=== PATIENT | male | born 1950 | race Caucasian/White ===

== ENCOUNTER 2016-06-24 21:46 | Emergency (ER) | payer OTHER ==
[2016-06-24] MEDS ORDERED: NS 1,000 ML IV ONE (22:05)
[2016-06-24] MEDS ORDERED: ONDANSETRON 4 MG/2 ML VIAL IVP ONE (22:08)
[2016-06-24 22:15] VITALS: O2SAT 93
[2016-06-24 22:17] LABS: % IMMATURE GRANULYOCYTES 0.3 % (0.0-1.1); ABSOLUTE IMMATURE GRANULOCYTES 0.02 10^3/uL (0.00-0.10); ADD DIFF? NO; ADD MORPH? NO; ADD SCAN? NO; ATYPICAL LYMPHOCYTE FLAG 0 (0-99); FRAGMENT RBC FLAG 0 (0-99); HEMATOCRIT 44.9 % (40.0-51.0); HEMOGLOBIN 16.4 g/dL (13.7-17.5); LEFT SHIFT FLG 0 (0-99); LIPEMIA HEMOLYSIS FLAG 90 (0-99); MEAN CELL HEMOGLOBIN 32.2 pg (27.9-34.1); MEAN CELL HEMOGLOBIN CONCENTR. 36.5 g/dL (32.4-36.7); PLATELET CLUMPS FLAG 10 (0-99); PLATELET COUNT 211 10^3/uL (150-400); RED CELL DISTRIBUTION WIDTH 11.9 % (11.5-15.2)
[2016-06-24 22:30] LABS: ALANINE AMINOTRANSFERASE 27 IU/L (21-72); ALBUMIN 4.3 g/dL (3.5-5.0); ALKALINE PHOSPHATASE 82 IU/L (38-126); ANION GAP 14 mEq/L (8-16); ASPARTATE AMINOTRANSFERASE 24 IU/L (17-59); BILIRUBIN,TOTAL 0.6 mg/dL (0.1-1.4); BILIRUBIN-CONJUGATED 0.1 mg/dL (0.0-0.5); BILIRUBIN-UNCONJUGATED 0.5 mg/dL (0.0-1.1); CALCIUM 9.9 mg/dL (8.5-10.4); CARBON DIOXIDE 26 mEq/l (22-31); CHLORIDE 100 mEq/L (97-110); GLOMERULAR FILTRATION RATE > 60; GLUCOSE 101 mg/dL (70-100); POTASSIUM 3.6 mEq/L (3.5-5.2); SODIUM 140 mEq/L (134-144); TOTAL PROTEIN 6.9 g/dL (6.3-8.2)
--- NOTE | 2016-06-24 22:36 | EDPHY ---
H & P Stated Complaint: stomach pain with chills weakness and N starting tonight, low BP HPI/ROS: HPI The patient presents with abdominal pain which began at about 9:00 p.m. tonight while he was sitting down watching television. He developed an uncomfortable pain in his mid abdomen which did not radiate. He felt as if he had to have a bowel movement so he walked up stairs and had a normal bowel movement and then began to feel nauseated, weak, with chills. He felt himself shaking. He went to lie down and checked his blood pressure and it was 80/50. He then made the decision to come into the emergency room. He has had elevated blood pressures lately and his doctor recently increased his losartan-hydrochlorothiazide combination pill. He is wondering if this is what caused the drop in his blood pressure. He has been feeling well earlier today. He ate a normal dinner at 7:00 p.m.. REVIEW OF SYSTEMS Constitutional: No fever, + chills. Eyes: No discharge. ENT: No sore throat. Cardiovascular: No chest pain, no palpitations. Respiratory: No cough, no shortness of breath. Gastrointestinal: No abdominal pain, no vomiting. Genitourinary: No hematuria. Musculoskeletal: No back pain. Skin: No rashes. Neurological: No headache. PMHx: Hypertension, atrial fibrillation Soc Hx: Lives at home with his PHYSICAL General Appearance: Alert, no distress, occasional shaking throughout his arms and legs Eyes: Pupils equal and round no pallor or injection ENT, Mouth: Mucous membranes moist Respiratory: There are no retractions, lungs are clear to auscultation Cardiovascular: Regular rate and rhythm Gastrointestinal: Abdomen is soft and non-tender, no masses, bowel sounds normal Neurological: A&O, moves all extremities Skin: Warm and dry, no rashes Musculoskeletal: Neck is supple non tender Extremities: symmetrical, full range of motion Psychiatric: Patient is oriented X 3, there is no agitation Source: Patient Exam Limitations: No limitations - Personal History Current Tetanus/Diphtheria Vaccine: Yes Current Tetanus Diphtheria and Acellular Pertussis (TDAP): Yes Tetanus Vaccine Date: <10yrs - Medical/Surgical History Hx Asthma: No Hx Chronic Respiratory Disease: No Hx Diabetes: No Hx Cardiac Disease: Yes Hx Renal Disease: No Hx Cirrhosis: No Hx Alcoholism: No Hx HIV/AIDS: No Hx Splenectomy or Spleen Trauma: No Other PMH: med hx-htn,hx trigeminal neuralgia,a-fib. surg-cardiac asd repair- umbrella placed x2 - Social History Smoking Status: Never smoked Constitutional: Initial Vital Signs Temperature (C) 36.4 C 06/24/16 21:54 Heart Rate 74 06/24/16 21:54 Respiratory Rate 12 06/24/16 21:54 Blood Pressure 139/77 H 06/24/16 21:54 O2 Sat (%) 98 06/24/16 21:54 O2 Delivery Mode Room Air Allergies/Adverse Reactions: Sulfa (Sulfonamide Antibiotics) Allergy (Intermediate, Verified 11/26/15 21:21) Rash Home Medications: Medication Instructions Recorded Latanoprost 1 drop EACHEYE DAILY 03/14/12 Aspirin EC [Aspirin EC 81 mg (*)] 81 mg PO DAILY 02/12/16 Calcium Carbonate [Tums 500MG (*)] 500 mg PO TID PRN #0 tab.chew 02/13/16 Pantoprazole Sodium [Protonix 40mg 40 mg PO DAILY #30 tab 02/13/16 (*)] Losartan-Hctz 50-12.5 mg Tab 06/24/16 Medical Decision Making ED Course/Re-evaluation: 11:40 p.m.- Patient was given 1 L of normal saline in addition to Zofran 4 mg. He felt much better. He had no continued abdominal pain. Repeat abdominal exam was benign. Labs were checked and were unremarkable. He may be coming down with a gastroenteritis or had hypotension from his new blood pressure medications in addition to dehydration, causing him to have these symptoms. His blood pressures have been normal here, with no hypotension. He does not have a fever. I have discussed this with him. Advised him to resume his previous lower blood pressure medication dosing and monitor his blood pressures for the next 2 days. I would prefer his blood pressure runs a little high to avoid having episodes of hypotension. He can then discussed with his regular doctor in 3 days whether or not he should continue the higher dosing of his blood pressure medications. He is in agreement with this plan. Differential Diagnosis: This is a 66-year-old male with hypertension and atrial fibrillation who presents from home with an episode of abdominal pain, nausea associated with low blood pressure of 80/50. On exam, he has normal vital signs now with a normal blood pressure. His abdominal exam is benign. Differential diagnosis includes hypotension related to his increased antihypertensive dosing, viral gastroenteritis, toxin mediated enterocolitis, diverticulitis, sepsis. - Data Points Laboratory Results: Laboratory Results 06/24/16 22:08 06/24/16 22:08 06/24/16 06/24/16 22:55 22:08 WBC 6.60 10^3/uL (3.80-9.50) RBC 5.10 10^6/uL (4.40-6.38) Hgb 16.4 g/dL (13.7-17.5) Hct 44.9 % (40.0-51.0) MCV 88.0 fL (81.5-99.8) MCH 32.2 pg (27.9-34.1) MCHC 36.5 g/dL (32.4-36.7) RDW 11.9 % (11.5-15.2) Plt Count 211 10^3/uL (150-400) MPV 10.0 fL (8.7-11.7) Neut % (Auto) 54.0 % (39.3-74.2) Lymph % (Auto) 34.1 % (15.0-45.0) [place] % (Auto) 9.5 % (4.5-13.0) Eos % (Auto) 1.5 % (0.6-7.6) Baso % (Auto) 0.6 % (0.3-1.7) Nucleat RBC Rel Count 0.0 % (0.0-0.2) Absolute Neuts (auto) 3.56 10^3/uL (1.70-6.50) Absolute Lymphs (auto) 2.25 10^3/uL (1.00-3.00) Absolute Monos (auto) 0.63 10^3/uL (0.30-0.80) Absolute Eos (auto) 0.10 10^3/uL (0.03-0.40) Absolute Basos (auto) 0.04 10^3/uL (0.02-0.10) Absolute Nucleated RBC 0.00 10^3/uL (0-0.01) Immature Gran % 0.3 % (0.0-1.1) Immature Gran # 0.02 10^3/uL (0.00-0.10) Sodium 140 mEq/L (134-144) Potassium 3.6 mEq/L (3.5-5.2) Chloride 100 mEq/L (97-110) Carbon Dioxide 26 mEq/l (22-31) Anion Gap 14 mEq/L (8-16) BUN 17 mg/dL (7-23) Creatinine 1.0 mg/dL (0.7-1.3) Estimated GFR > 60 Glucose 101 H mg/dL (70-100) Calcium 9.9 mg/dL (8.5-10.4) Total Bilirubin 0.6 mg/dL (0.1-1.4) Conjugated Bilirubin 0.1 mg/dL (0.0-0.5) Unconjugated Bilirubin 0.5 mg/dL (0.0-1.1) AST 24 IU/L (17-59) ALT 27 IU/L (21-72) Alkaline Phosphatase 82 IU/L (38-126) Total Protein 6.9 g/dL (6.3-8.2) Albumin 4.3 g/dL (3.5-5.0) Lipase 100.0 IU/L (23-300) Urine Color YELLOW Urine Appearance HAZY Urine pH 6.0 (5.0-7.5) Ur Specific [place] 1.019 (1.002-1.030) Urine Protein NEGATIVE (NEGATIVE) Urine Ketones NEGATIVE (NEGATIVE) Urine Blood NEGATIVE (NEGATIVE) Urine Nitrate NEGATIVE (NEGATIVE) Urine Bilirubin NEGATIVE (NEGATIVE) Urine Urobilinogen NEGATIVE EU (0.2-1.0) Ur Leukocyte Esterase NEGATIVE (NEGATIVE) Ur Culture Indicated? NOT INDICATED (NI) Urine Glucose NEGATIVE (NEGATIVE) Medications Given: Discontinued Medications Sodium Chloride (Ns) 1,000 mls @ 0 mls/hr IV ONCE ONE PRN Reason: Wide Open Stop: 06/24/16 22:06 Last Admin: 06/24/16 22:13 Dose: 1,000 mls Ondansetron HCl (Zofran) 4 mg IVP EDNOW ONE Stop: 06/24/16 22:09 Last Admin: 06/24/16 22:14 Dose: 4 mg Departure - Departure Disposition: Home, Routine, Self-Care Clinical Impression: Abdominal pain, Hypotension Condition: Good Instructions: Acute Abdominal Pain (ED) Additional Instructions: You should make sure to drink plenty of fluids for the next few days, at least 2 L a day. Please resume your previous blood pressure medication dosing for the next 2-3 days. You should check your blood pressure twice a day and record your numbers. If your feeling off at all, recheck it then as well. Call your doctor on Monday to discuss what blood pressure medication you should be taking given that you had this episode of low blood pressure. Return to the emergency room if your worse in any way. Referrals: Rupali Coles MD [Primary Care Provider] - As per Instructions
[2016-06-24 23:10] VITALS: TEMP 98.1
[2016-06-24 23:23] LABS: COLOR YELLOW; LEUKOCYTE ESTERASE,URINE NEGATIVE (NEGATIVE); NITRITE,URINE NEGATIVE (NEGATIVE)
[2016-06-24 23:49] VITALS: BP 116/73; PULSE 69; RESP 16
== END 2016-06-24 23:49 | disposition home or self-care (01) ==
DX: R10.9 Unspecified abdominal pain (principal); I95.9 Hypotension, unspecified; I10 Essential (primary) hypertension; Z79.82 Long term (current) use of aspirin
CPT/HCPCS: 96374; J2405

== ENCOUNTER → 2017-02-23 | Outpatient (CLI) | payer OTHER, MEDICARE | LOC: BHFA 09:15 | PROVIDERS: ATTEND Internal Medicine Cardiovascular Disease | DX: I48.91 Unspecified atrial fibrillation (principal); I10 Essential (primary) hypertension; R01.1 Cardiac murmur, unspecified ==

== ENCOUNTER → 2017-08-15 | Outpatient (CLI) | payer OTHER, MEDICARE | LOC: CIMAGING 11:39 | PROVIDERS: ATTEND Nurse Practitioner | DX: M25.572 Pain in left ankle and joints of left foot (principal); R60.0 Localized edema | CPT/HCPCS: 73610-PO ==

== ENCOUNTER → 2017-11-08 | Outpatient (CLI) | payer OTHER, MEDICARE | LOC: CIMAGING 13:54 | PROVIDERS: ATTEND Internal Medicine | DX: M19.011 Primary osteoarthritis, right shoulder (principal); M19.031 Primary osteoarthritis, right wrist; M25.562 Pain in left knee; M67.911 Unspecified disorder of synovium and tendon, right shoulder; R51 Headache | CPT/HCPCS: 70450-PO; 73030-PO; 73110-PO; 73562-PO ==

== ENCOUNTER → 2018-03-14 | Outpatient (CLI) | payer OTHER, MEDICARE | LOC: BHFA 08:30 | PROVIDERS: ATTEND Internal Medicine Cardiovascular Disease | DX: I34.0 Nonrheumatic mitral (valve) insufficiency (principal) ==

== ENCOUNTER → 2018-11-21 | Outpatient (CLI) | payer OTHER, MEDICARE | LOC: EMCIMAGING 09:26 ==

== ENCOUNTER → 2018-12-03 | Outpatient (CLI) | payer OTHER, MEDICARE | LOC: EMCIMAGING 07:37 ==